=== PATIENT | male | born 1965 | race Caucasian/White ===

== ENCOUNTER 2023-04-25 10:26 | Outpatient (CLI) | payer OTHER ==
[2023-04-25 17:21] LABS: Free T4 (Free Thyroxine) 0.92 ng/dL (0.70-1.48)
== END 2023-04-25 10:27 | disposition home or self-care (01) ==
LOC: MADRAD 10:26
PROVIDERS: ATTEND Chiropractor
DX: C73 Malignant neoplasm of thyroid gland (principal); M17.11 Unilateral primary osteoarthritis, right knee
CPT/HCPCS: 36415; 84439; 84443; 84481